=== PATIENT | female | born 1945 | race Caucasian/White ===

== ENCOUNTER → 2022-08-12 | Outpatient (CLI) | payer MEDICARE ==
[2022-08-12 14:36] LABS: ALT 23 U/L (4-34); AST 30 U/L (14-36); African American GFR (CKD) 82 (>60 ml/min/1.73 sqM); Albumin/Globulin Ratio 1.4; Alkaline Phosphatase 96 U/L (38-126); Anion Gap 6 mmol/L; Blood Urea Nitrogen 17 mg/dL (7-17); Calcium 9.1 mg/dL (8.4-10.2); Carbon Dioxide 31 mmol/L (22-30); Chloride 100 mmol/L (98-107); Globulin 2.9 g/dL; Glucose 90 mg/dL (74-99); Non-African American GFR(CKD) 72 (>60 ml/min/1.73 sqM); Potassium 4.4 mmol/L (3.5-5.1); Sodium 137 mmol/L (137-145); Total Bilirubin 1.2 mg/dL (0.2-1.3); Total Protein 6.9 g/dL (6.3-8.2)
[2022-08-12 14:39] LABS: HCT 40.9 % (34.0-46.0); HGB 13.2 gm/dL (11.4-16.0); MCH 28.6 pg (25.0-35.0); MCHC 32.2 g/dL (31.0-37.0); MCV 88.7 fL (80.0-100.0); Mean Platelet Volume 9.2; Platelet Count 178 k/uL (150-450); RBC 4.61 m/uL (3.80-5.40); RDW 12.9 % (11.5-15.5); WBC 5.8 k/uL (3.8-10.6)
[2022-08-12 15:21] LABS: Partial Thromboplastin Time 25.2 sec (22.0-30.0); Prothrombin Time 10.2 sec (9.0-12.0)
[2022-08-12 15:46] LABS: Appearance,Urine Clear (Clear); Bilirubin,Urine Negative (Negative); Blood,Urine Negative (Negative); Color,Urine Yellow; Glucose,Urine (UA) Negative (Negative); Ketones,Urine Negative (Negative); Leukocyte Esterase,Urine Negative (Negative); Nitrite,Urine Negative (Negative); Protein,Urine Negative (Negative); Specific Gravity,Urine 1.018 (1.001-1.035); Urobilinogen,Urine <2.0 mg/dL (<2.0)
== END | disposition home or self-care (01) ==
LOC: LABPAT 12:33
PROVIDERS: ATTEND Family Medicine
DX: Z01.812 Encounter for preprocedural laboratory examination (principal); M17.11 Unilateral primary osteoarthritis, right knee
CPT/HCPCS: 80053; 81003; 85027; 85610; 85730; 87070

== ENCOUNTER 2022-08-24 10:33 | Inpatient (IN) | payer MEDICARE ==
[2022-08-18 12:12] VITALS: BMI 28.4
[~2022-08-24 10:33] MED LIST: ACETAMINOPHEN TAB 500 MG TAB PO PRN; DEXAMETHASONE SOD PHOSPHATE 4 MG/ML 1 ML VIAL IV ONE; GABAPENTIN 300 MG CAP PO PRN; HYDROmorphone 0.5 MG/0.5 ML SYRINGE IVP PRN; LIDOCAINE 1% (10MG/ML) FOR IV START INTRADERMA PRN; MELOXICAM 7.5 MG TAB PO PRN; MIDAZOLAM 2 MG/2 ML VIAL IV PRN; ONDANSETRON 4 MG/2 ML VIAL IVP ONE; TRANEXAMIC 1,000 MG/100ML-NACL 1,000 MG in SALINE 1 100ML.BAG IVPB PRN
[2022-08-24] MEDS: LACTATED RINGERS 1,000 ML IV SCH ×2 (10:58→11:12)
[2022-08-24] MEDS ORDERED: fentaNYL (PF) 50 MCG/ML 2 ML AMP ONE (12:41)
[2022-08-24] MEDS ORDERED: PROPOFOL 10 MG/ML 20 ML VIAL IV ONE (12:41)
[2022-08-24] MEDS ORDERED: ROPIVACAINE 5 MG/ML 30 ML VIAL ONE (12:41)
[2022-08-24] MEDS ORDERED: KETAMINE 10 MG/ML 20 ML VIAL ONE (12:41)
[2022-08-24] MEDS ORDERED: DEXAMETHASONE SOD PHOSPHATE 4 MG/ML 1 ML VIAL ONE (12:41)
[2022-08-24] MEDS ORDERED: TRANEXAMIC 1,000 MG/100ML-NACL PREMIX BAG ONE (12:41)
[2022-08-24] MEDS ORDERED: MIDAZOLAM 2 MG/2 ML VIAL ONE (12:41)
[2022-08-24] MEDS ORDERED: ceFAZolin 1,000 MG in SODIUM CHLORIDE 0.9% 1,000 ML IRRIGATION ONE (13:00)
--- NOTE | 2022-08-24 14:16 | P.OP ---
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 Procedure(s) Performed: Revision right total knee arthroplasty with conversion of a medial unicompartmental knee replacement to a total knee replacement Implants: [employer] Nephew Journey II CR Oxinium cruciate retaining femoral component size 5, right [employer] Journey nonporous tibial baseplate size 4, right [employer] Journey II, XLPE Deep Dished articular insert, size 11 mm, Size 3-4, right [employer] Journey Cher II resurfacing patellar component, oval, 29 mm All components were cemented using Palacos R bone cement The articulation is Oxinium on polyethylene Anesthesia: spinal Surgeon: Wilfredo Sidhu Division Leader #1: Pau Mcarthur Estimated Blood Loss (ml): 50 Pathology: none sent Condition: stable Disposition: PACU Indications for Procedure: This is a 76-year-old female that has had a right medial unicompartmental knee replacement performed at another hospital approximately 3 years ago. She has constant pain in her right knee and the x-rays demonstrate significant medial overhang on the tibial component. After discussing the surgical and nonsurgical treatment options with her at length, she wishes to proceed with a revision right total knee arthroplasty with a conversion from a medial unicompartmental knee replacement to a total knee replacement. Informed consent was obtained. Operative Findings: The operative findings are consistent with significant osteoarthritis in the patellofemoral lateral compartments of the right knee. Also there is significant overhang of the tibial component of the medial unicompartmental knee replacement. There is no evidence of any infection. Description of Procedure: The patient was seen in the preoperative area, the consent was reviewed and the operative site was marked with a skin marker. The patient verified the procedure and the operative site. An adductor canal pain catheter and an iPACK block were placed by anesthesia in the preoperative area. The patient was then brought to the operating room and positioned on the operating room table in the supine position. Preoperative antibiotics and a gram of tranexamic acid were given intravenously. A spinal anesthetic was administered by the anesthesia dep artment. Care was taken to make sure that all pressure points were adequately padded. A tourniquet was placed on the upper thigh and the lower extremity was prepped with ChloraPrep and draped in usual sterile fashion. A universal time-out was then performed which confirmed the patient's name, surgical site, ALLERGIES, and consent. The lower extremity was then exsanguinated and tourniquet was inflated to 250 mmHg. A standard anterior midline approach to the knee was performed with the prior scar being excised. The skin and subcutaneous tissue were sharply dissected down to the patellar tendon. A medial parapatellar arthrotomy was then performed. The knee was then extended, the patellar was everted, and the knee was flexed. The infra-patellar fat pad was removed in order to enhance exposure. The anterior horn of the lateral meniscus was excised, and a release was performed to the posterior medial aspect of the knee. On gross visual inspection, there was a medial unicompartmental knee replacement which was well fixed, but was significant overhang of the medial tibial component. There was also significant cartilage damage in the lateral and patellofemoral compartments. There were multiple periarticular osteophytes globally about the knee which were then removed with a Ronguer. The femoral canal was then opened with the 9.5 mm intramedullary drill. The 8 mm intramedullary yonatan was then inserted into the femoral canal with the distal femoral cutting guide set for 5 of valgus. The distal femoral cutting block was then pinned in place. The intramedullary yonatan was then removed, and the distal femur was then cut. After the bone was cut underneath the femoral component, the femoral component was an easily removed with an osteotome and a mallet. The cutting block was then removed and the cut was checked for symmetry. The resected bone was then measured to confirm the appropriate distal femoral resection. Next, the sizing guide was then placed and set for 3 external rotation based off of the epicondylar axis and Diana's line. Pins were then placed and the drill holes, and the femur was sized with the sizing stylus. The pins were then removed, and the sizing guide was then removed. The spikes of the appropriate size femoral block was then placed into the predrilled holes, and malleted into place. Two 45 mm pins were then placed into the fixation holes on the cutting block. An rocky wing was then used to ensure there would be no notching with the anterior cut. The anterior condyles were cut without notching. The anterior chord cut was then performed, followed by the posterior cut, posterior chamfer cut, and the anterior chamfer cut. The collateral ligaments were protected during the entire process. The cutting block was then removed. Any remaining bone and osteophytes were removed from the femur with a Ronguer. Attention was then directed to the tibia. The remaining ACL was removed with a Ronguer, and the tibia was then gently subluxed forward with a large bent knee retractor. Any remaining menisci were excised. The posterior lateral corner was cauterized in order to coagulate the lateral geniculate artery. The tibial component was then removed with an osteotome and a mallet with minimal bone loss. The extra medullary tibial cutting guide was then placed, set for the appropriate rotation, slope, and depth of resection. The proximal tibia cutting guide was then pinned in place. Proximal tibia was then cut and sized. A curved osteotome was then used to remove any posterior osteophytes from the distal femur. The femoral trial was placed. A narrow saw blade was then used to remove the anterior intracondylar femoral bone. The CR notch trial was then placed. The tibial trial was placed with the appropriate-sized insert. The knee was able to fully extend and flex to 130 and was stable throughout all range of motion. The knee was then extended and the patella was everted. Patella was then measur ed, and then using an osteotomy guide, the patella was cut at the appropriate level. The patellar component was sized. The patellar drill guide was placed and the patella was drilled. The patella trial was then placed. The knee was then taken through range of motion with the patella trial and the patella tracked normally using the no thumbs technique. The patella trial was then removed. The knee was then flexed and lug holes were drilled through the femoral trial and the femoral trial was then removed. The tibial was then re- exposed, and the tibial broach guide was then pinned in place after it was set for the appropriate rotation to allow for the most coverage without overhang. The tibia was then reamed and broached. The femoral canal was plugged with autologous bone. The cut surfaces of bone were then irrigated with pulsatile lavage. The knee was also irrigated with Irrisept solution. The components were then opened, the cement was mixed. Cement was placed on the backside of the femoral, tibial, and patellar components. Cement was then applied to the tibial surface and pressurized into the surface using finger pressurization technique. The tibial component was then applied and excess cement was removed after it was impacted securely noted to be flush with the cut surface. In similar fashion, the cement was applied to the cut femoral surface, pressurized and using finger pressurization the component was impacted in place. Excess cement was removed. The polyethylene spacer was then implanted and locked into position. Patellar component was then applied in a similar technique and the patellar clamp was used to hold patella in place while the cement hardened. The knee was held in full extension while the cement hardened. Once the cement had fully hardened, the knee was reinspected. Any other cement extrusion was removed the final range of motion testing showed range of motion from 0-130 with excellent stability, both medial and laterally and appropriate alignment of the leg. Patella tracked normally[default value] After the cemented hardened, the tourniquet was released and hemostasis was obtained. A second gram of transexamic acid was given intravenously. The knee was again irrigated. The knee was again taken through range of motion and found to be stable throughout all range of motion of 0-130, and the patella tracked normally. The fascia was then closed with 0 Vicryl followed by #2 strata fix suture. The subcutaneous tissue was closed with 3-0 Vicryl and 3-0 strata fix. Exofin glue was used for the skin and placed with the knee in flexion. After the glue had dried, and Optafoam silver impregnated dressing was applied. A lightly compressive dressing was applied using web roll and Nishant wrap. Patient was then transferred to the stretcher and taken to recovery room in stable condition. Sponge and needle counts were correct. The accountant assistant AKASH Vaughan was required due the complexity surgery and the need for a skilled assistant professor of radiology. She assisted in positioning, draping, retraction, and closure of the wound.
[2022-08-24] MEDS ORDERED: HYDROmorphone 0.5 MG/0.5 ML SYRINGE IVP PRN ×3 (14:28)
[2022-08-24] MEDS ORDERED: bisacodyL 10 MG SUPP RECTAL PRN (14:28)
[2022-08-24] MEDS ORDERED: MAGNESIUM HYDROXIDE 2,400 MG/30 ML CUP PO PRN (14:28)
[2022-08-24] MEDS ORDERED: NALOXONE 0.4 MG/ML 1 ML VIAL IV PRN (14:28)
[2022-08-24] MEDS ORDERED: NA PHOS,M-B/NA PHOS,DI-BA 133 ML ENEMA RECTAL PRN (14:28)
[2022-08-24] MEDS ORDERED: HYDROcodone/APAP 7.5-325MG 1 EACH TAB PO PRN ×2 (14:31)
--- NOTE | 2022-08-24 15:38 | XR ---
EXAMINATION TYPE: XR knee limited RT DATE OF EXAM: 08/24/2022 COMPARISON: None HISTORY: Postsurgery TECHNIQUE: 2 view right knee FINDINGS: Tibiofemoral components of an place. No acute fracture or dislocation is evident. Small varun nt effusion may be present. Postsurgical soft tissue changes are evident. IMPRESSION: 1. No acute fractures post knee replacement. 2. Small joint fluid collection is not excluded. 3. Normal postsurgical soft tissue changes.
[2022-08-24] MEDS ORDERED: LORATADINE 10 MG TAB PO PRN (18:41)
[2022-08-24] MEDS: SODIUM CHLORIDE 0.9% 1,000 ML IV SCH (20:13)
[2022-08-24] MEDS: ASPIRIN 325 MG TAB PO SCH (20:13)
--- NOTE | 2022-08-24 20:21 | P.ANPRN ---
Procedure Note - Anesthesia - Nerve Block Performed Right Adductor Canal Infusion Time Out Performed: Yes Date of Procedure: 08/24/22 Procedure Start Time: 11:22 Procedure Stop Time: 11:32 Location of Patient: PreOp Indication: Acute Post-Operative Pain, Requested by Surgeon Sedation Type: Sedate with meaningful contact maintained Preparation: Sterile Prep Position: Supine Catheter: Indwelling Needle Types: On-Q Needle Gauge: 21 Ultrasound used to visualize needle placement: Yes Ultrasound used to observe medication spread: Yes Blood Aspirated: No Pain Paresthesia on Injection Noted: No Resistance on Injection: Normal Image Stored and Saved: Yes Events: Uneventful and Well Tolerated (Ropivacaine 0.5% 20 mL plus dexamethasone 4 mg)
--- NOTE | 2022-08-24 20:22 | P.ANPRN ---
Procedure Note - Anesthesia - Nerve Block Performed Right iPack Single Time Out Performed: Yes Date of Procedure: 08/24/22 Procedure Start Time: 11:33 Procedure Stop Time: 11:36 Location of Patient: PreOp Indication: Acute Post-Operative Pain, Requested by Surgeon Sedation Type: Sedate with meaningful contact maintained Preparation: Sterile Prep Position: Supine Needle Types: Pajunk Needle Gauge: 21 Ultrasound used to visualize needle placement: Yes Ultrasound used to observe medication spread: Yes Blood Aspirated: No Pain Paresthesia on Injection Noted: No Resistance on Injection: Normal Image Stored and Saved: Yes Events: Uneventful and Well Tolerated (Ropivacaine 0.5% 20 mL plus dexamethasone 4 mg)
[2022-08-24] MEDS ORDERED: ATORVASTATIN 20 MG TAB PO SCH (21:00)
[2022-08-24] MEDS ORDERED: SENNOSIDES-DOCUSATE SODIUM 1 EACH TAB PO SCH (21:00)
[2022-08-24] MEDS: ONDANSETRON 4 MG/2 ML VIAL IVP PRN (22:51)
--- NOTE | 2022-08-24 22:53 | P.CONS ---
History of Present Illness - Reason for Consult Consult date: 08/24/22 Medical management Requesting physician: Wilfredo Sidhu - Chief Complaint Right knee surgery - History of Present Illness This is a pleasant 76-year-old patient of Dr. Mary Noble. Chronic stable medical conditions include TIA 2, prostatitis, environmental ALLERGIES, dry eyes, lactose intolerance,. Patient has undergone revision right total knee arthroplasty. Was procedure laying in bed. Pain control. No nausea vomiting. Did tolerate some food. Review of systems: GEN.: None EYES: Dry eyes HEENT: None NECK: None RESPIRATORY: None CARDIOVASCULAR: None GASTROINTESTINAL: None GENITOURINARY: None MUSCULOSKELETAL: Joint pains LYMPHATICS: None HEMATOLOGICAL: None PSYCHIATRY: None NEUROLOGICAL: None Past medical history to include: TIA 2, dry eyes, last arthritis, environmental ALLERGIES, lactose intolerance, kidney stone that got passed out Social history: Lives with . No smoking or alcohol. Physical examination: VITAL SIGNS: 97.3, 69, 17, 111/72, 99% room air GENERAL: BMI 28.7, laying in bed, awake, comfortable. EYES: Pupils equal. Conjunctiva normal. HEENT: External appearance of nose and ears normal, oral cavity grossly normal. NECK: JVD not raised; masses not palpable. HEART: First and second heart sounds are normal; no edema. LUNGS: Respiratory rate normal; clear to auscultation. ABDOMEN: Soft, nontender, liver spleen not palpable, no masses palpable. PSYCH: Alert and oriented x3; mood and affect normal. MUSCULOSKELETAL:No Clubbing/cyanosis;muscles-grossly intact. Dressing over the right knee. OA NEUROLOGICAL: Cranial nerves grossly intact; no facial asymmetry, power and sensation grossly intact. LYMPHATICS: No lymph nodes palpable in the axilla and neck INVESTIGATIONS, reviewed in the clinical context: 08/12/2022: WBC 5.8 hemoglobin 13.2 platelets 178 sodium 137 potassium 4.4 creatinine 0.8 Assessment plan: -Revision right total knee arthroplasty Pain control. Aspirin for DVT prophylaxis -Vitamin B-12 deficiency Vitamin B12 thousand micrograms a day -Hyperlipidemia Crestor 10 mg daily at bedtime -Primary osteoarthritis -Environmental ALLERGIES Antihistaminic as needed -Keratoconjunctivitis/dry eyes Artificial tears as needed Discussed with patient. Thank you Dr. Sidhu Past Medical History Past Medical History: CVA/TIA, Eye Disorder, Osteoarthritis (OA), Skin Disorder Additional Past Medical History / Comment(s): Environmental allergies. Hx TIA X2, last 06/2007, no residual effects. Mild cataracts, dry eye. Hx bronchitis. Lactose Intolerant. Hx kidney stone X1. Acne. History of Any Multi-Drug Resistant Organisms: None Reported Past Surgical History: Bladder Surgery, Cholecystectomy, Hysterectomy, Joint Replacement, Orthopedic Surgery, Tonsillectomy Additional Past Surgical History / Comment(s): Bilateral partial knee replacements, polyp/cyst removed from tip of spine, D&C X2, laproscopy of fallopian tubes, bladder suspension, right rotator cuff/bicep surgery. Past Anesthesia/Blood Transfusion Reactions: Previous Problems w/ Anesthesia, Motion Sickness Additional Past Anesthesia/Blood Transfusion Reaction / Comm: "With first D&C in 1981, I was out for almost 4 hrs and it should have only been for 20 minutes". Past Psychological History: No Psychological Hx Reported Smoking Status: Never smoker Past Alcohol Use History: None Reported Past Drug Use History: None Reported - Past Family History Mother Family Medical History: Diabetes Mellitus Additional Family Medical History / Comment(s): during angioplasty. Father Family Medical History: Neurologic Disorder Additional Family Medical History / Comment(s): Parkinson's. Medications and Allergies Home Medications Medication Instructions Recorded Confirmed Type Ascorbic Acid [Vitamin C] 500 mg PO DAILY 08/18/22 08/24/22 History Aspirin [Adult Low Dose Aspirin EC] 81 mg PO DAILY 08/18/22 08/24/22 History Calcium Carbonate [Calcium] 1,300 mg PO DAILY 08/18/22 08/24/22 History Cetirizine HCl [Zyrtec] 10 mg PO DAILY PRN 08/18/22 08/24/22 History Cyanocobalamin (Vitamin B-12) 1,000 mcg PO DAILY 08/18/22 08/24/22 History [Vitamin B-12] Fluticasone Nasal [place] [Flonase 1 spray EA NOSTRIL DAILY PRN 08/18/22 08/24/22 History Nasal [place]] Mv-Min/Folic/Vit K/Lut/Zevm327 3 each PO DAILY 08/18/22 08/24/22 History [Alive Women's 50 Plus Tablet] Rosuvastatin [Crestor] 10 mg PO HS 08/18/22 08/24/22 History Ubidecarenone [Co Q-10] 100 mg PO DAILY 08/18/22 08/24/22 History Aspirin 325 mg PO BID #60 tab 08/24/22 Rx HYDROcodone/APAP 7.5-325MG [[place] 1 - 2 tab PO Q6H PRN #32 tab 08/24/22 Rx 7.5-325] Sennosides [Senokot] 2 tab PO DAILY PRN #60 tablet 08/24/22 Rx Allergies Allergy/AdvReac Type Severity Reaction Status Date / Time Iodinated Contrast Media Allergy Rash/Hives Verified 08/24/22 11:07 lactose Allergy Diarrhea Verified 08/24/22 11:07 nickel Allergy Rash/Hives Verified 08/24/22 11:07 nitroglycerin Allergy "Aragon like Verified 08/24/22 11:07 I was dying." oxycodone Allergy "Weird Verified 08/24/22 11:07 feeling" Physical Exam Vitals: Vital Signs Temp Pulse Pulse Resp BP Pulse Ox 08/24/22 20:00 97.3 F L 69 17 111/72 99 08/24/22 18:14 65 113/72 100 08/24/22 18:00 106/66 100 08/24/22 17:45 124/78 08/24/22 17:29 84 145/78 100 08/24/22 17:14 83 125/77 100 08/24/22 16:59 72 125/76 100 08/24/22 16:45 71 129/69 100 08/24/22 16:29 72 130/84 100 08/24/22 16:14 97.5 F L 63 16 138/71 100 08/24/22 15:59 65 16 112/72 100 08/24/22 15:46 56 L 15 116/55 96 08/24/22 15:36 61 19 96/55 98 08/24/22 15:21 58 L 19 104/59 99 08/24/22 15:06 57 L 15 96/53 99 08/24/22 14:52 59 L 15 97/55 100 08/24/22 14:36 61 15 104/57 08/24/22 14:31 68 23 104/56 100 08/24/22 14:26 97.3 F L 79 16 106/59 99 08/24/22 11:38 75 16 126/59 97 08/24/22 11:09 97.8 F 69 16 135/64 95 Intake and Output 08/24/22 08/24/22 08/24/22 06:59 14:59 22:59 Intake Total 1051 Output Total 50 Balance 1001 Intake: IV 1051 Output: Estimated Blood Loss 50 Other: # Voids 0 Weight 67.7 kg 67.7 kg
[2022-08-25 02:37] VITALS: RESP 18
[2022-08-25] MEDS: SODIUM CHLORIDE 0.9% 1,000 ML IV SCH (05:07)
[2022-08-25] MEDS: LACTATED RINGERS 1,000 ML IV SCH (05:11)
[2022-08-25] MEDS: ONDANSETRON 4 MG/2 ML VIAL IVP PRN (06:58)
[2022-08-25 07:50] VITALS: TEMP 97.6
--- NOTE | 2022-08-25 08:28 | P.PN ---
Progress Note - Text Progress Note Date: 08/25/22 (7668) Anesthesiology Postop day 1 status post total knee arthroplasty with adductor canal catheter. Patient doing well. VAS 0 out of 10 overnight with breakthrough meds. Gross strength intact in lower extremity. Afebrile. Denies alterations in sensorium. Catheter site intact. Heart regular rate Lungs nonlabored Abdomen nondistended Assessment: Postop day 1 status post total knee arthroplasty with adductor canal catheter Plan: 1.All questions answered. Maintain catheter 2 more days with patient removal at home. Instructions to be given at discharge. 2.This note was dictated using [employer] software. Please be advised there is a potential for misspellings or errors in residence life coordinator.
[2022-08-25] MEDS ORDERED: CYANOCOBALAMIN 500 MCG TAB PO SCH (09:00)
[2022-08-25] MEDS ORDERED: CALCIUM CARBONATE 500 MG CHEWABLE PO SCH (09:00)
[2022-08-25] MEDS ORDERED: ASCORBIC ACID 500 MG TAB PO SCH (09:00)
--- NOTE | 2022-08-25 10:23 | P.DS ---
Providers Date of admission: 08/24/22 10:33 Expected date of discharge: 08/25/22 Attending physician: Wilfredo Sidhu Consults: 08/24/22 16:26 Consult Physician Routine Consulting Provider: Wenceslao Gooden Consult Reason/Comments: med management Do you want consulting provider notified?: Yes Primary care physician: Kathia Weems Ross - Discharge Diagnosis(es) (1) S/P revision of total knee Current Visit: Yes Status: Acute Hospital Course: This is a 76-year-old female with a history of right medial unicompartmental knee replacement 3 years ago which was done at a different hospital. The patient developed persistent pain in the right knee. The patient presented for evaluation as an outpatient and x-rays revealed medial overhang of the tibial component. After discussion and consideration patient elects to proceed with revision right total knee arthroplasty with conversion of a medial unicompartmental knee replacement to a total knee replacement. The patient is seen preoperatively by Dr. Sidhu and medically cleared for surgery by their primary care physician. Patient is admitted to [facility] on 08/24/2022 for revision right total knee arthroplasty with conversion of a medial unicompartmental knee replacement to a total knee replacement. The procedure is performed without complication or sequelae. The patient is doing well postoperatively. Labs and vital signs are stable on day of discharge. On day of discharge patient's knee incision is healing well. There is minimal erythema. There is no drainage noted at this time. There is minimal soft tissue swelling to the knee. Patient has full foot and ankle motion without difficulty or pain. Calf is soft and nontender to palpation. Neurovascular status to the right lower extremity is intact. Patient is discharged home in good condition. Please see med rec for accurate list of home medications. Plan - Discharge Summary Discharge Rx Participant: Yes New Discharge Prescriptions: New Aspirin 325 mg PO BID #60 tab Sennosides [Senokot] 2 tab PO DAILY PRN #60 tablet PRN Reason: Constipation Ondansetron Odt [Zofran Odt] 1 tab PO Q8HR PRN #10 tab PRN Reason: Nausea HYDROcodone/APAP 7.5-325MG [[place] 7.5-325] 1 - 2 tab PO Q6H PRN #32 tab PRN Reason: Pain No Action Ubidecarenone [Co Q-10] 100 mg PO DAILY Calcium Carbonate [Calcium] 1,300 mg PO DAILY Aspirin [Adult Low Dose Aspirin EC] 81 mg PO DAILY Fluticasone Nasal [place] [Flonase Nasal [place]] 1 spray EA NOSTRIL DAILY PRN PRN Reason: Allergic Reaction Cetirizine HCl [Zyrtec] 10 mg PO DAILY PRN PRN Reason: Allergic Reaction Rosuvastatin [Crestor] 10 mg PO HS Mv-Min/Folic/Vit K/Lut/[id number] [Alive Women's 50 Plus Tablet] 3 each PO DAILY Cyanocobalamin (Vitamin B-12) [Vitamin B-12] 1,000 mcg PO DAILY Ascorbic Acid [Vitamin C] 500 mg PO DAILY Discharge Medication List Ascorbic Acid [Vitamin C] 500 mg PO DAILY 08/18/22 [History] Aspirin [Adult Low Dose Aspirin EC] 81 mg PO DAILY 08/18/22 [History] Calcium Carbonate [Calcium] 1,300 mg PO DAILY 08/18/22 [History] Cetirizine HCl [Zyrtec] 10 mg PO DAILY PRN 08/18/22 [History] Cyanocobalamin (Vitamin B-12) [Vitamin B-12] 1,000 mcg PO DAILY 08/18/22 [History] Fluticasone Nasal [place] [Flonase Nasal [place]] 1 spray EA NOSTRIL DAILY PRN 08/18/22 [History] Mv-Min/Folic/Vit K/Lut/[id number] [Alive Women's 50 Plus Tablet] 3 each PO DAILY 08/18/22 [History] Rosuvastatin [Crestor] 10 mg PO HS 08/18/22 [History] Ubidecarenone [Co Q-10] 100 mg PO DAILY 08/18/22 [History] Aspirin 325 mg PO BID #60 tab 08/24/22 [Rx] HYDROcodone/APAP 7.5-325MG [[place] 7.5-325] 1 - 2 tab PO Q6H PRN #32 tab 08/24/22 [Rx] Sennosides [Senokot] 2 tab PO DAILY PRN #60 tablet 08/24/22 [Rx] Ondansetron Odt [Zofran Odt] 1 tab PO Q8HR PRN #10 tab 08/25/22 [Rx] Follow up Appointment(s)/Referral(s): Heithoff,Wilfredo, DO [Doctor of Osteopathic Medicine] - 2 Weeks Activity/Diet/Wound Care/Special Instructions: Weightbearing as tolerated with a walker. CPM 5-6h daily as tolerated. Leave dressing intact. Dressing may be removed by home care nurse or by patient in 7 days. Then change dressing twice daily until follow up. May shower with initial dressing intact and after removal. If dressing become saturated, please remove. Recommend use of compression stockings daily until follow up to help prevent swelling and blood clots. May remove at night before sleeping. Please take aspirin 325mg twice daily for 30 days to prevent blood clots. Please follow up with [facility] and call with any questions or concerns, . Discharge Disposition: HOME WITH HOME HEALTH SERVICES
[2022-08-25] MEDS: ASPIRIN 325 MG TAB PO SCH (10:42)
[2022-08-25 11:03] LABS: Basophils # (A) 0.02 X 10*3/uL (0.00-0.10); Basophils % (A) 0.2 %; Eosinophils # (A) 0 X 10*3/uL (0.04-0.35); Eosinophils % (A) 0 %; HCT 38.5 % (37.2-46.3); HGB 12.1 d/dL (12.0-15.0); Lymphocytes # (A) 1.18 X 10*3/uL (0.90-5.00); Lymphocytes % (A) 11.8 %; MCH 28.9 pg (27.0-32.0); MCHC 31.4 d/dL (32.0-37.0); MCV 92.1 FL (80.0-97.0); Monocytes # (A) 0.57 X 10*3/uL (0.20-1.00); Monocytes % (A) 5.7 %; NRBC Per 100 WBC 0 X 10*3/uL (0.00-0.01); Neutrophils # (A) 8.23 X 10*3/uL (1.80-7.70); Neutrophils % (A) 82.1 %; Platelet Count 115 X 10*3/uL (140-440); RBC 4.18 X 10*6/uL (4.10-5.20); WBC 10.02 X 10*3/uL (4.50-10.00)
[2022-08-25 11:04] LABS: RBC Morphology Normal (Normal)
[2022-08-25 14:05] VITALS: BP 110/68; PULSE 60
--- NOTE | 2022-08-25 21:14 | P.PN ---
Progress Note - Text Progress Note Date: 08/25/22 - Chief Complaint Right knee surgery Hospital course This is a pleasant 76-year-old patient of Dr. Mary Noble. Chronic stable medical conditions include TIA 2, osteoarthritis environmental ALLERGIES, dry eyes, lactose intolerance,. Patient has undergone revision right total knee arthroplasty. Was procedure laying in bed. Pain control. No nausea vomiting. Did tolerate some food. August 25: Had some nausea. Diet discussed with the patient. Did work with therapy. Questions answered. Current medications reviewed Past medical history to include: TIA 2, dry eyes, last arthritis, environmental ALLERGIES, lactose intolerance, kidney stone that got passed out Social history: Lives with . No smoking or alcohol. Physical examination: VITAL SIGNS: 97.6, 57, 18, 1 10 x 68, 98% room air GENERAL: Up in bed, comfortable. EYES: Pupils equal. Conjunctiva normal. HEENT: External appearance of nose and ears normal, oral cavity grossly normal. NECK: JVD not raised; masses not palpable. HEART: First and second heart sounds are normal; no edema. LUNGS: Respiratory rate normal; clear to auscultation. ABDOMEN: Soft, nontender, liver spleen not palpable, no masses palpable. PSYCH: Alert and oriented x3; mood and affect normal. MUSCULOSKELETAL:No Clubbing/cyanosis;muscles-grossly intact. Dressing over the right knee. OA INVESTIGATIONS, reviewed in the clinical context: August 25: White count 10.0 hemoglobin 12.1 platelets 115 08/12/2022: WBC 5.8 hemoglobin 13.2 platelets 178 sodium 137 potassium 4.4 creatinine 0.8 Assessment plan: -Revision right total knee arthroplasty Pain control. Aspirin for DVT prophylaxis -Vitamin B-12 deficiency Vitamin B12 thousand micrograms a day -Hyperlipidemia Crestor 10 mg daily at bedtime -Primary osteoarthritis -Environmental ALLERGIES Antihistaminic as needed -Keratoconjunctivitis/dry eyes Artificial tears as needed Discussed with patient. Questions answered. Thank you Dr. Sidhu
== END 2022-08-25 15:12 | disposition home health service (06) | DRG 468 ==
LOC: 2ORMAIN 10:33 → 4SSUR 15:03
PROVIDERS: ADMIT Orthopaedic Surgery; ATTEND Orthopaedic Surgery
PROC: 0SPC0LZ Removal of Medial Unicondylar Synthetic Substitute from Right Knee Joint, Open Approach (ICD-10-PCS; 2022-08-24)
PROC: 0SRC0J9 Replacement of Right Knee Joint with Synthetic Substitute, Cemented, Open Approach (ICD-10-PCS; principal; 2022-08-24 12:30)
DX: M17.11 Unilateral primary osteoarthritis, right knee (principal); E73.9 Lactose intolerance, unspecified; Z79.82 Long term (current) use of aspirin; Z82.0 Family history of epilepsy and other diseases of the nervous system; Z83.3 Family history of diabetes mellitus; Z86.73 Personal history of transient ischemic attack (TIA), and cerebral infarction without residual deficits; Z87.442 Personal history of urinary calculi; Z90.710 Acquired absence of both cervix and uterus; Z88.5 Allergy status to narcotic agent; Z88.8 Allergy status to other drugs, medicaments and biological substances; Z91.041 Radiographic dye allergy status
CPT/HCPCS: 64448; 64999; 85025

== ENCOUNTER → 2023-06-16 | Outpatient (CLI) | payer MEDICARE ==
--- NOTE | 2023-06-16 13:33 | CT ---
EXAMINATION TYPE: CT chest wo con CT DLP: 629.80 mGycm, Automated exposure control for dose reduction was used. DATE OF EXAM: 06/16/2023 11:08 AM COMPARISON: Chest radiograph from June 08, 2023 CLINICAL INDICATION:Female, 77 years old with history of J84.9 INTERSTITIAL PULMONARY DISEASE, UNSPEC IFIED; PHH, ILD, unspecified TECHNIQUE: Multiple axial images were obtained through the chest. Sagittal and coronal reformats were created for review. Contrast used: mL of (None if empty) Oral contrast used: (None if empty) FINDINGS: LUNGS/ PLEURA: Subtle mild patchy groundglass infiltrates are seen throughout both lungs. No focal co nsolidating process. AIRWAY: Patent and unremarkable. HEART: Size within normal limits. MEDIASTINUM: No gross evidence of adenopathy. VASCULATURE: No aortic aneurysm. MUSCULOSKELETAL: No acute osseous abnormalities SOFT TISSUES/LYMPH NODES: Unremarkable. LOWER NECK: No significant findings. UPPER ABDOMEN: No significant findings. IMPRESSION: Subtle mild patchy groundglass infiltrates are seen throughout both lungs. No focal consolidating pro cess. Follow up recommendations for incidental pulmonary nodules, if there are any, are per Flelaxmi?saray Dailey [employer] or [employer]. [email or web address]
== END | disposition home or self-care (01) ==
LOC: RADCTMAIN 10:37
PROVIDERS: ATTEND Internal Medicine Critical Care Medicine
DX: R91.8 Other nonspecific abnormal finding of lung field (principal); J84.9 Interstitial pulmonary disease, unspecified
CPT/HCPCS: 71250

== ENCOUNTER 2023-07-08 11:13 | Day surgery (SDC) | payer MEDICARE ==
[2023-07-02 11:29] VITALS: BMI 30.4
[~2023-07-08 11:13] MED LIST changes: -ACETAMINOPHEN TAB 500 MG TAB PO PRN; -DEXAMETHASONE SOD PHOSPHATE 4 MG/ML 1 ML VIAL IV ONE; -GABAPENTIN 300 MG CAP PO PRN; -HYDROmorphone 0.5 MG/0.5 ML SYRINGE IVP PRN; +LACTATED RINGERS 1,000 ML IV SCH; -MELOXICAM 7.5 MG TAB PO PRN; -MIDAZOLAM 2 MG/2 ML VIAL IV PRN; -ONDANSETRON 4 MG/2 ML VIAL IVP ONE; -TRANEXAMIC 1,000 MG/100ML-NACL 1,000 MG in SALINE 1 100ML.BAG IVPB PRN
[2023-07-08] MEDS: LACTATED RINGERS 1,000 ML IV SCH (12:01)
[2023-07-08] MEDS: ATROPINE SULFATE 0.4 MG/ML 1 ML VIAL IM ONE (12:05)
[2023-07-08 12:10] VITALS: TEMP 97.6
[2023-07-08] MEDS ORDERED: fentaNYL (PF) 50 MCG/ML 2 ML AMP ONE (12:28)
[2023-07-08] MEDS ORDERED: LIDOCAINE 2% (PF) 20 MG/ML 5 ML VIAL ONE (12:28)
[2023-07-08] MEDS ORDERED: PROPOFOL 10 MG/ML 20 ML VIAL IV ONE (12:28)
[2023-07-08] MEDS: LIDOCAINE 2% INJ 20 MG/ML INTRATRACH ONE (12:37)
--- NOTE | 2023-07-08 13:05 | PCN ---
PROCEDURE NOTE PULMONARY/CRITICAL CARE PROCEDURE NOTE: PROCEDURES PERFORMED: Bronchoscopy, airway examination, therapeutic lavage, right middle lobe BAL, lingula BAL, and brushes in the right middle lobe. PREOPERATIVE DIAGNOSES: Shortness of breath and cough, changes on CT scan. POSTOPERATIVE DIAGNOSES: Shortness of breath and cough, changes on CT scan. OPERATORS: Dr. Neumann and Dr. Pruett. The patient's procedure took place in room #1 [facility]. There was informed consent and universal timeout. ANESTHESIA PROVIDED: Monitored anesthesia care. DESCRIPTION OF PROCEDURE: After the patient was adequately sedated and being fully monitored, the bronchoscope was inserted through the right nostril. It passed through the right nasopharynx into the oropharynx. The hypopharynx was identified and topicalized. The hypopharyngeal structures, including anterior commissure, true cords, false cords, arytenoids, piriform sinuses, right and left, vallecula, epiglottis, all appeared normal. The glottic opening was topicalized with lidocaine. Next, the bronchoscope was pushed through the glottic opening into the trachea. The trachea itself appeared normal. We did apply some lidocaine to the trachea as an anesthetic. The tracheal maryanne was sharp. The right and left mainstem were topicalized with lidocaine. The right upper lobe and its 3 segments, right middle lobe and its 2 segments, right lower lobe and its 5 segments, left upper lobe and its 2 segments, lingula and its 2 segments, and left lower lobe and its 4 segments all had similar findings of relatively normal-looking airways. There were some very mild bronchitis, particularly in the right upper lobe. There was no dominant mass or tumor. There was no bleeding. There was no vascular engorgement or mucosal friability. The bronchoscope was then wedged into the lingula. We did a formal BAL. 30 mL of fluid was recovered. Next, the bronchoscope was wedged into the right middle lobe. We did a BAL in the right middle lobe, again about 30 mL of fluid was recovered. Finally, we did brushes in the right middle lobe. The patient tolerated the procedure well. There was no immediate complication. The bronchoscope was withdrawn and the patient will be recovered. MMODL / IJN: [id number] /
[2023-07-08 13:09] VITALS: BP 135/74; PULSE 85; RESP 18
== END 2023-07-08 13:26 | disposition home or self-care (01) ==
LOC: ORWHC2ENDO 11:13
PROVIDERS: ATTEND Internal Medicine Critical Care Medicine
DX: U07.1 COVID-19 (principal); E55.9 Vitamin D deficiency, unspecified; K29.70 Gastritis, unspecified, without bleeding; G45.9 Transient cerebral ischemic attack, unspecified; G43.909 Migraine, unspecified, not intractable, without status migrainosus; D32.0 Benign neoplasm of cerebral meninges; K57.92 Diverticulitis of intestine, part unspecified, without perforation or abscess without bleeding; B35.1 Tinea unguium; Z91.041 Radiographic dye allergy status; Z79.82 Long term (current) use of aspirin; Z82.49 Family history of ischemic heart disease and other diseases of the circulatory system; Z90.89 Acquired absence of other organs; Z90.49 Acquired absence of other specified parts of digestive tract; Z90.710 Acquired absence of both cervix and uterus
CPT/HCPCS: 88104; 88108; 88305; 87070; 87205; 87116; 87102; 87206; 31623; 31624; J2001 ×2; J0461; J3010; J2704